=== PATIENT | female | born 1950 | race Caucasian/White ===

== ENCOUNTER → 2019-11-09 11:10 | Outpatient (BNVA) | payer SELFPAY | PROVIDERS: Visit Provider Nurse Practitioner Family | DX: I10 Essential (primary) hypertension (principal); E03.9 Hypothyroidism, unspecified; Z79.899 Other long term (current) drug therapy | CPT/HCPCS: 80053; 80061; 84443 ==

== ENCOUNTER → 2019-11-21 10:02 | Outpatient (BNVA) | payer MEDICARE, SELFPAY | PROVIDERS: Visit Provider Nurse Practitioner Family | DX: E11.9 Type 2 diabetes mellitus without complications (principal); E03.9 Hypothyroidism, unspecified; I10 Essential (primary) hypertension; R74.8 Abnormal levels of other serum enzymes | CPT/HCPCS: 83036 ==

== ENCOUNTER → 2020-09-24 11:22 | Outpatient (BNVA) | payer OTHER, SELFPAY | PROVIDERS: Visit Provider Nurse Practitioner Family | DX: E78.5 Hyperlipidemia, unspecified (principal); I10 Essential (primary) hypertension; E03.9 Hypothyroidism, unspecified; E11.9 Type 2 diabetes mellitus without complications | CPT/HCPCS: 80053; 80061; 83036; 84443 ==

== ENCOUNTER → 2022-07-01 11:38 | Outpatient (BNVA) | payer MEDICARE, OTHER, SELFPAY | PROVIDERS: PCP Nurse Practitioner Family; Visit Provider Nurse Practitioner Family | DX: E03.9 Hypothyroidism, unspecified (principal); E78.5 Hyperlipidemia, unspecified; I10 Essential (primary) hypertension | CPT/HCPCS: 80053; 80061; 84443 ==

== ENCOUNTER → 2023-01-22 10:15 | Outpatient (BNVA) | payer OTHER, SELFPAY | PROVIDERS: PCP Nurse Practitioner Family; Visit Provider Nurse Practitioner Family | DX: I10 Essential (primary) hypertension (principal); E03.9 Hypothyroidism, unspecified | CPT/HCPCS: 80053; 80061; 84443 ==

== ENCOUNTER → 2023-11-09 14:14 | Outpatient (BNVA) | payer OTHER, SELFPAY | PROVIDERS: PCP Nurse Practitioner Family; Visit Provider Nurse Practitioner Family | DX: I10 Essential (primary) hypertension (principal); E03.9 Hypothyroidism, unspecified | CPT/HCPCS: 80053; 80061; 84443 ==

== ENCOUNTER → 2024-04-11 15:19 | Outpatient (BNVA) | payer MEDICARE, SELFPAY | PROVIDERS: PCP Nurse Practitioner Family; Visit Provider Nurse Practitioner Family | DX: L03.116 Cellulitis of left lower limb (principal); I10 Essential (primary) hypertension | CPT/HCPCS: 80053 ==

== ENCOUNTER → 2024-06-29 08:06 | Outpatient (BNVA) | payer MEDICARE, SELFPAY | PROVIDERS: PCP Nurse Practitioner Family; Visit Provider Thoracic Surgery (Cardiothoracic Vascular Surgery) | DX: I96 Gangrene, not elsewhere classified (principal); L97.811 Non-pressure chronic ulcer of other part of right lower leg limited to breakdown of skin; L97.821 Non-pressure chronic ulcer of other part of left lower leg limited to breakdown of skin | CPT/HCPCS: 99213 ==

== ENCOUNTER 2024-07-05 18:07 | Emergency (ER) | payer MEDICARE, SELFPAY ==
[2024-07-05 18:49] LABS: Basophils # 0.1 10^3/uL (0.0-0.1); Basophils % 0.5 %; Eosinophils # 0.2 10^3/uL (0.0-0.8); Eosinophils % 1.6 %; Lymphocytes # 2.7 10^3/uL (0.8-4.8); Lymphocytes % 20.3 %; Mean Corpuscular HGB Conc 32.5 g/dL (30-55); Mean Corpuscular Hemoglobin 31.6 pg (27-33); Mean Corpuscular Volume 97.1 fl (85-98); Mean Platelet Volume 9.9 fL (7.4-10.4); Monocytes # 1.3 10^3/uL (0.2-0.9); Monocytes % 10.1 %; Neutrophils # 8.93 10^3/uL (1.8-7.7); Nucleated Red Blood Cells % 0 %; Platelet Count 230 10^3/cmm (157-399); Red Blood Count 4.12 10^6/uL (3.85-5.65); Red Cell Distribution Width 14.3 % (12.1-15.1); White Blood Count 13.32 10^3/uL (3.29-11.43)
[2024-07-05 18:53] LABS: Erythrocyte Sedimentation Rate 46 mm/hr (0-15)
[2024-07-05 18:55] VITALS: BP 134/74; PULSE 90; RESP 19; TEMP 36.4; O2SAT 97; BMI 51.5
[2024-07-05 19:05] LABS: Alanine Aminotransferase 32 U/L (0-33); Albumin Level 3.4 g/dL (3.5-5.2); Alkaline Phosphatase 76 U/L (35-105); Anion Gap 18.8 (5-19); Aspartate Amino Transferase 28 U/L (0-32); Blood Urea Nitrogen 50 mg/dL (8-23); C Reactive Protein 128.9 mg/L (0.0-4.9); Calcium 9.1 mg/dL (8.5-10.5); Carbon Dioxide 18 mmol/L (22-29); Chloride 98 mmol/L (98-107); Creatinine Clr Calc Pharmacy 53.0871; Globulin 4.2 g/dL (1.3-4.6); Glucose 197 mg/dL (65-115); Osmolality Calculated 289 mOsm/kg (285-295); Potassium 4.8 mmol/L (3.5-5.1); Sodium 130 mmol/L (136-145); Total Bilirubin 0.3 mg/dL (0.15-1.2); Total Protein 7.6 g/dL (6.6-8.7)
--- NOTE | 2024-07-05 19:34 | W.ED.SKABFB ---
HPI - Skin/Abscess/Foreign Bdy General: Chief complaint: Skin/Abscess/Foreign Body Stated complaint: rashes on both legs Time Seen by Provider: 07/05/24 19:08 History of Present Illness: Patient presents to the ER with what she calls worsening cellulitis and weeping of her bilateral lower extremities from her knee down. Patient states she has been on at least 6 different rounds of antibiotics by multiple different doctors, these include cephalexin prescribed March 31, clindamycin prescribed April 11, Bactrim prescribed April 27, levofloxacin prescribed May 22, Augmentin prescribed on June [address] Desir wound care, during this time patient patient said someone tried Unna boots on her but she could not stand compression, Hermilo wrap but could not stand this compression. They tried Lasix from 20, 40, 80 mg daily this did not help with her edema/fluid retention and cause her to be hypokalemic and have muscle cramps and spasms. Patient said one of the providers did do wound cultures and got the sensitivity back and this was when she was prescribed Levaquin because it grew out bacteria that was sensitive to Levaquin but this did not help very much at all. Related Data Previous Rx's ?Medication ?Instructions ?Recorded furosemide 20 mg tablet 20 mg PO QAM #30 tabs 03/31/24 clindamycin HCl 300 mg capsule 300 mg PO TID 10 days #30 caps 04/11/24 sulfamethoxazole 800 1 tab PO BID 14 days #28 tabs 04/27/24 mg-trimethoprim 160 mg tablet (Bactrim DS) tramadol 50 mg tablet 50 mg PO Q6H PRN pain #60 tabs 04/27/24 levothyroxine 75 mcg capsule See Rx Instructions .Route 05/01/24 .COMPLEX #90 caps mupirocin 2 % topical ointment 1 applic topical BID 7 days #50 05/03/24 grams lisinopril 5 mg tablet See Rx Instructions .Route 06/28/24 .COMPLEX #90 tabs metoprolol succinate 200 mg See Rx Instructions .Route 06/28/24 tablet,extended release 24 hr .COMPLEX #90 tabs amoxicillin 500 mg-potassium 1 tab PO BID #14 tabs 06/29/24 clavulanate 125 mg tablet (Augmentin) hydrocodone 5 mg-acetaminophen 325 1 tab PO BID PRN pain 7 days #14 06/29/24 mg tablet tabs doxycycline hyclate 100 mg capsule 100 mg PO BID 10 days #20 caps 07/05/24 oxycodone-acetaminophen 5 mg-325 1 tab PO Q8H PRN pain #10 tabs 07/05/24 mg tablet (Percocet) Allergies Allergy/AdvReac Type Severity Reaction Status Date / Time No Known Allergies Allergy Verified 07/05/24 18:59 Review of Systems General: Reports: 10 or more systems reviewed and unremarkable except in HPI and below PFSH ED PFSH: Medical History (Updated 07/05/24 @ 22:08 by Reji James DO) Hypothyroidism HTN (hypertension) Social History Smoking and tobacco/nicotine status: never used tobacco/nicotine Physical Exam Const: COMMON NORMALS: no acute distress, average body habitus, patient oriented x3, no limitations, healthy appearing, alert and well nourished HENMT: COMMON NORMALS: normocephalic, atraumatic, hearing grossly normal bilaterally, external ears normal, Normal external nose present, moist oral mucous membranes and oropharynx normal HEAD & SCALP: normocephalic and atraumatic NOSE: Normal external nose present EXTERNAL EAR: Yes external ears normal Neck/C-Spine: COMMON NORMALS: no JVD Chest: COMMONS NORMALS: normal inspection of the chest and normal palpation of entire chest wall Resp: COMMON NORMALS: normal respiratory effort, No retractions, No use of accessory muscles and clear to auscultation bilaterally AUSCULTATION: clear to auscultation bilaterally Cardio: COMMON NORMALS: no JVD, regular rate, regular rhythm, S1 normal heart sound present, S2 normal heart sound present, No gallops present (Cardio), No clicks present (Cardio), No murmurs present (Cardio) and No rub (Cardio) RATE: regular rate RHYTHM: regular rhythm HEART SOUNDS: S1 normal heart sound present and S2 normal heart sound present GI: COMMON NORMALS: Normal to inspection, nondistended, normoactive bowel sounds present, Soft to palpation, non-tender, No hepatosplenomegaly present and no masses PALPATION: Yes Soft to palpation and Yes No hepatosplenomegaly present Extremity: NARRATIVE EXTREMITY EXAM: Bilateral venous stasis noted, edema noted, ulcerations worse on the left lateral and posterior lower extremity, no odor, purulent drainage, necrotic tissue noted. Neuro: COMMON NORMALS: patient oriented x3 SENSORIUM/ORIENTATION: Yes alert Course Vital Signs: Vital signs: Vital Signs Temperature 97.5 F L 07/05/24 18:55 Pulse Rate 98 07/05/24 21:50 Respiratory Rate 18 07/05/24 22:27 Blood Pressure 126/78 07/05/24 21:50 Pulse Oximetry 97 07/05/24 21:50 Oxygen Delivery Me thod Room Air 07/05/24 18:55 MDM - Skin/Abscess/Foreign Bdy Medicial Decision Making Lab work was obtained which essentially unremarkable except mildly elevated BUN/creatinine, this may be from her Lasix use. We do not have inpatient wound care or infectious disease at this time, I do not feel it is purulent nature however we did get blood cultures. We will go ahead and place the patient on Percocet for pain control and doxycycline for antibiotic control and and have her follow back up with Dr. Desir. Medical Records I reviewed the patient's medical records. Lab Data I reviewed the patient's lab results. 07/05/24 18:43 07/05/24 18:43 Laboratory Results WBC 13.32 10^3/uL (3.29-11.43) H 07/05/24 18:43 RBC 4.12 10^6/uL (3.85-5.65) 07/05/24 18:43 Hgb 13.00 g/dL (11.27-16.99) 07/05/24 18:43 Hct 40.0 % (36-47) 07/05/24 18:43 MCV 97.1 fl (85-98) 07/05/24 18:43 MCH 31.6 pg (27-33) 07/05/24 18:43 MCHC 32.5 g/dL (30-55) 07/05/24 18:43 RDW 14.3 % (12.1-15.1) 07/05/24 18:43 Plt Count 230 10^3/cmm (157-399) 07/05/24 18:43 MPV 9.9 fL (7.4-10.4) 07/05/24 18:43 Neut % (Auto) 67.0 % 07/05/24 18:43 Lymph % (Auto) 20.3 % 07/05/24 18:43 [place] % (Auto) 10.1 % 07/05/24 18:43 Eos % (Auto) 1.6 % 07/05/24 18:43 Baso % (Auto) 0.5 % 07/05/24 18:43 Neut # (Auto) 8.93 10^3/uL (1.8-7.7) H 07/05/24 18:43 Lymph # (Auto) 2.7 10^3/uL (0.8-4.8) 07/05/24 18:43 [place] # (Auto) 1.3 10^3/uL (0.2-0.9) H 07/05/24 18:43 Eos # (Auto) 0.2 10^3/uL (0.0-0.8) 07/05/24 18:43 Baso # (Auto) 0.1 10^3/uL (0.0-0.1) 07/05/24 18:43 Nucleated RBC % (auto) 0 % 07/05/24 18:43 Nucleated RBCs # 0.0 /100WBC 07/05/24 18:43 ESR 46 mm/hr (0-15) H 07/05/24 18:43 Sodium 130 mmol/L (136-145) L 07/05/24 18:43 Potassium 4.8 mmol/L (3.5-5.1) 07/05/24 18:43 Chloride 98 mmol/L (98-107) 07/05/24 18:43 Carbon Dioxide 18 mmol/L (22-29) L 07/05/24 18:43 Anion Gap 18.8 (5-19) 07/05/24 18:43 BUN 50 mg/dL (8-23) H 07/05/24 18:43 Creatinine 1.3 mg/dL (0.5-0.9) H 07/05/24 18:43 GFR Calculation Not Reportable 07/05/24 18:43 Glucose 197 mg/dL (65-115) H 07/05/24 18:43 Calculated Osmolality 289 mOsm/kg (285-295) 07/05/24 18:43 Lactic Acid 2.0 mmol/L (0.5-2.2) 07/05/24 18:43 Calcium 9.1 mg/dL (8.5-10.5) 07/05/24 18:43 Magnesium 2.4 mg/dL (1.7-2.3) H 07/05/24 18:43 Total Bilirubin 0.3 mg/dL (0.15-1.2) 07/05/24 18:43 AST 28 U/L (0-32) 07/05/24 18:43 ALT 32 U/L (0-33) 07/05/24 18:43 Alkaline Phosphatase 76 U/L (35-105) 07/05/24 18:43 C-Reactive Protein 128.9 mg/L (0.0-4.9) H 07/05/24 18:43 NT-Pro-B Natriuret Pep < 36 pg/mL (0-125) 07/05/24 18:43 Total Protein 7.6 g/dL (6.6-8.7) 07/05/24 18:43 Albumin 3.4 g/dL (3.5-5.2) L 07/05/24 18:43 Globulin 4.2 g/dL (1.3-4.6) 07/05/24 18:43 Procalcitonin 0.27 ng/mL (0-0.5) 07/05/24 18:43 All radiology interpretation(s) finalized by discharge Discharge Plan Discharge Patient Disposition: Home Clinical Impression: Lymphedema, Stasis ulcer Condition: Stable Prescriptions: New doxycycline hyclate 100 mg capsule 100 mg PO BID 10 Days Qty: 20 0RF oxycodone-acetaminophen [Percocet] 5-325 mg tablet 1 tab PO Q8H PRN (Reason: pain) Qty: 10 0RF No Action clindamycin HCl 300 mg capsule 300 mg PO TID 10 Days Qty: 30 0RF sulfamethoxazole-trimethoprim [Bactrim DS] 800-160 mg tablet 1 tab PO BID 14 Days Qty: 28 0RF tramadol 50 mg tablet 50 mg PO Q6H PRN (Reason: pain) Qty: 60 1RF furosemide 20 mg tablet 20 mg PO QAM Qty: 30 0RF amoxicillin-pot clavulanate [Augmentin] 500-125 mg tablet 1 tab PO BID Qty: 14 0RF hydrocodone-acetaminophen 5-325 mg tablet 1 tab PO BID PRN (Reason: pain) 7 Days Qty: 14 0RF levothyroxine 75 mcg capsule See Rx Instructions .ROUTE .COMPLEX Qty: 90 1RF Dose Instruction: TAKE 1 CAPSULE BY MOUTH DAILY Rx Instructions: TAKE 1 CAPSULE BY MOUTH DAILY mupirocin 2 % ointment 1 applic topical BID 7 Days Qty: 50 1RF metoprolol succinate 200 mg tablet extended release 24 hr See Rx Instructions .ROUTE .COMPLEX Qty: 90 0RF Dose Instruction: TAKE 1 TABLET BY MOUTH DAILY Rx Instructions: TAKE 1 TABLET BY MOUTH DAILY lisinopril 5 mg tablet See Rx Instructions .ROUTE .COMPLEX Qty: 90 0RF Dose Instruction: TAKE 1 TABLET BY MOUTH DAILY Rx Instructions: TAKE 1 TABLET BY MOUTH DAILY Discharge Orders: Discharge ED (Routine); Ordered 07/05/24 Ordered By: Reji James Referrals: Fartun Gage FNP [Primary Care Provider] - 1 week Patient Instructions: Lymphedema (ED), Venous Insufficiency (DC), Opioid Safety, Pain Management Activity Restrictions/Additional Instructions: We have provided you with a different antibiotic and a different pain medicine. Please follow-up with your family practice additionally keep your appointment with Dr. Desir wound care. This more than likely is not true cellulitis as an infection. Is more likely lymphedema and venous stasis ulcers. You may benefit from being referred to vascular surgeon. Thank you for choosing [facility] for your healthcare needs today. Please realize that you were seen in the emergency department and that we are providing you with an emergency medical screening exam and this may not be a complete and all exclusive of all testing and/or medical workup we may need to determine your element or severity of your illness. It is very important that you follow-up as instructed with your primary care provider or specialist for the additional evaluation and to discuss your medical treatment plan. You may return to the emergency department should you have concerns or if your condition changes or worsens in any way. Print Language: Latvian Coding Level of Care Code ED Registered Radiation Therapist for Berna Mims
[2024-07-05 20:52] LABS: NT Pro B Type Natriuretic Pept < 36 pg/mL (0-125); Procalcitonin 0.27 ng/mL (0-0.5)
[2024-07-05 21:02] LABS: Magnesium 2.4 mg/dL (1.7-2.3)
[2024-07-05 21:50] VITALS: BP 126/78; PULSE 98; O2SAT 97
[2024-07-05] MEDS: ondansetron 4 MG Tablet PO (22:01)
[2024-07-05 22:27] VITALS: RESP 18
[2024-07-05] MEDS: doxycycline 100 mg Tablet PO (22:27)
[2024-07-05] MEDS: morphine 4 mg/mL SDV 1 mL IM (22:27)
== END 2024-07-05 23:25 | disposition home or self-care (01) ==
PROVIDERS: Emergency Medicine; Emergency Provider Emergency Medicine; PCP Nurse Practitioner Family
DX: I89.0 Lymphedema, not elsewhere classified (principal); I83.009 Varicose veins of unspecified lower extremity with ulcer of unspecified site; L97.919 Non-pressure chronic ulcer of unspecified part of right lower leg with unspecified severity; L97.929 Non-pressure chronic ulcer of unspecified part of left lower leg with unspecified severity; I10 Essential (primary) hypertension
CPT/HCPCS: 36415; 80053; 83605; 83735; 83880; 84145; 85025; 85651; 86140; 87040; 96372; 99284; J2270; J9999; Q0162

== ENCOUNTER → 2024-08-16 12:09 | Outpatient (BNVA) | payer MEDICARE, SELFPAY | PROVIDERS: PCP Nurse Practitioner Family; Visit Provider Nurse Practitioner Family | DX: D64.9 Anemia, unspecified (principal); I10 Essential (primary) hypertension | CPT/HCPCS: 80053; 85025 ==

== ENCOUNTER → 2024-08-17 11:14 | Outpatient (BNVA) | payer MEDICARE, SELFPAY | PROVIDERS: PCP Nurse Practitioner Family; Visit Provider Nurse Practitioner Family | DX: R19.7 Diarrhea, unspecified (principal) | CPT/HCPCS: 87045; 87324; 87427; 87449; 87493 ==

== ENCOUNTER → 2024-09-13 15:55 | Outpatient (BNVA) | payer MEDICARE, SELFPAY | PROVIDERS: PCP Nurse Practitioner Family; Visit Provider Nurse Practitioner Family | DX: D64.9 Anemia, unspecified (principal); I10 Essential (primary) hypertension | CPT/HCPCS: 80053; 85025 ==

== ENCOUNTER → 2024-12-26 10:06 | Outpatient (BNVA) | payer MEDICARE, SELFPAY | PROVIDERS: PCP Nurse Practitioner Family; Visit Provider Nurse Practitioner Family | DX: E03.9 Hypothyroidism, unspecified (principal); I10 Essential (primary) hypertension; R53.83 Other fatigue | CPT/HCPCS: 80053; 80061; 84443; 85025 ==